=== PATIENT | female | born 1955 | race Caucasian/White ===

== ENCOUNTER 2016-08-09 14:44 | Emergency (ER) | payer MEDICARE, MEDICAID ==
[~2016-08-09] VITALS: Ht 149.9 cm; Wt 57.2 kg
[2016-08-09 14:46] VITALS: BP 135/82
[2016-08-09] MEDS ORDERED: ZYPR10TA PO (15:07)
[2016-08-09] MEDS ORDERED: LAMO10TA PO (15:07)
[2016-08-09] MEDS ORDERED: ALBU17IN2 INH (15:07)
[2016-08-09] MEDS ORDERED: SUDA30TA PO (15:07)
[2016-08-09] MEDS ORDERED: HYDR-3716 PO (15:07)
[2016-08-09] MEDS ORDERED: MOTR200T44 PO (15:07)
[2016-08-09] MEDS ORDERED: MIRA33504 PO (15:07)
[2016-08-09] MEDS ORDERED: KLON0.5T PO (15:07)
[2016-08-09] MEDS ORDERED: MECL-86 PO (15:07)
[2016-08-09] MEDS ORDERED: PROM50TA2 PO (15:07)
[2016-08-09] MEDS ORDERED: BACT800T5 PO (15:44)
[2016-08-09] MEDS ORDERED: BACTRIM 160MG/800MG DS TAB PO ONE (15:45)
== END 2016-08-09 16:28 | disposition home or self-care (01) ==
LOC: M ED 16:12
DX: L03.116 Cellulitis of left lower limb (principal); Z79.899 Other long term (current) drug therapy; Z88.5 Allergy status to narcotic agent; Z88.8 Allergy status to other drugs, medicaments and biological substances; Z87.891 Personal history of nicotine dependence

== ENCOUNTER 2017-02-05 11:40 | Emergency (ER) | payer MEDICARE, MEDICAID ==
[~2017-02-05] VITALS: Ht 154.9 cm; Wt 81.8 kg
[~2017-02-05 11:40] MED LIST: ALBU17IN2 INH; BACT800T5 PO; HYDR-3716 PO; KLON0.5T PO; LAMO10TA PO; MECL-86 PO; MIRA33504 PO; MOTR200T44 PO; PROM50TA4 PO; SUDA30TA PO; ZYPR10TA PO
[2017-02-05] MEDS ORDERED: ELIQ5TAB PO (13:03)
[2017-02-05 13:29] LABS: YEAST LIKE CELL URINE AUTO SMALL
[2017-02-05] MEDS ORDERED: CIPROFLOXACIN 500 MG TAB PO ONE (14:15)
[2017-02-05] MEDS ORDERED: CIPR-249 PO (14:17)
[2017-02-05 14:36] VITALS: BP 140/80
== END 2017-02-05 15:14 | disposition home or self-care (01) ==
LOC: M ED 11:40
DX: T83.098A Other mechanical complication of other urinary catheter, initial encounter (principal); J45.909 Unspecified asthma, uncomplicated; F31.9 Bipolar disorder, unspecified; N31.9 Neuromuscular dysfunction of bladder, unspecified; H81.09 Meniere's disease, unspecified ear; D49.2 Neoplasm of unspecified behavior of bone, soft tissue, and skin; Z79.899 Other long term (current) drug therapy; Z88.8 Allergy status to other drugs, medicaments and biological substances

== ENCOUNTER 2017-02-05 17:03 | Emergency (ER) | payer MEDICARE, MEDICAID ==
[~2017-02-05] VITALS: Ht 149.9 cm; Wt 65.9 kg
[~2017-02-05 17:03] MED LIST changes: +CIPR-249 PO; +ELIQ5TAB PO
[2017-02-05 21:13] VITALS: BP 149/84
== END 2017-02-05 21:17 | disposition home or self-care (01) ==
LOC: M ED 17:03
DX: T83.098A Other mechanical complication of other urinary catheter, initial encounter (principal); J45.909 Unspecified asthma, uncomplicated; F31.9 Bipolar disorder, unspecified; N31.9 Neuromuscular dysfunction of bladder, unspecified; H81.09 Meniere's disease, unspecified ear; D49.2 Neoplasm of unspecified behavior of bone, soft tissue, and skin; Z79.899 Other long term (current) drug therapy; Z88.8 Allergy status to other drugs, medicaments and biological substances